=== PATIENT | female | born 1985 | race Caucasian/White ===

== ENCOUNTER 2016-06-03 15:52 | Inpatient (IN) | payer OTHER ==
[~2016-06-03] VITALS: Ht 167.6 cm; Wt 74.8 kg
[2016-06-03 16:37] VITALS: BP 126/75
[2016-06-03 17:17] LABS: ABSOLUTE BASOPHIL COUNT 0.1 /CUMM (0.0-0.2); ABSOLUTE EOSINOPHIL COUNT 0 /CUMM (0.0-0.7); ABSOLUTE GRANULOCYTE CT 10.5 /CUMM (1.4-6.5); ABSOLUTE LYMPH COUNT 1.7 /CUMM (1.2-3.4); ABSOLUTE MONOCYTE COUNT 0.7 /CUMM (0.10-0.60); BASOPHIL % 0.4 % (0.0-2.0); EOSINOPHIL % 0.2 % (0-5); MEAN CORPUSCULAR HGB 29.3 PG (27.0-31.0); MEAN CORPUSCULAR HGB CONC 33.6 G/DL (33.0-37.0); PLATELET COUNT 180 /CUMM (130-400); RBC DISTRIBUTION WIDTH 12.9 % (11.5-14.5); RED BLOOD CELL CT 3.91 /CUMM (4.20-5.40); WHITE BLOOD CELL COUNT 12.9 /CUMM (4.8-10.8)
[2016-06-03 17:19] LABS: GRANULOCYTE % 81.2 % (42.2-75.2)
--- NOTE | 2016-06-03 19:20 | History & Physical ---
General Information and HPI MD Statement: I have seen and personally examined ASHLEYJANA ALARCON and documented this H&P. The patient is a 30 year old female at [39] weeks and [3] days gestation who presented with a chief complaint of [LOF]. Source of Information: patient Exam Limitations: no limitations History of Present Illness: 30YO, 39 3/7wks , c/o LOF noon today, she went to office for evaluation, nitrizine positive, ferning negative, no pooling. came to CBC for further evaluation. she is also c/o mild ctxs. amnisure positive. care started at at 8 wks, h/o hypothyroidism, she takes synthroid 25mcg daily. 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 Home Who Do You Live With? spouse Primary Language: [place] Smoking Status: Never Smoked ETOH Use: denies use Illicit Drug Use: denies illicit drug use Review of Systems Review of Systems Constitutional: Reports: no symptoms. EENTM: Reports: no symptoms. Cardiovascular: Reports: no symptoms. Respiratory: Reports: no symptoms. GI: Reports: no symptoms. Genitourinary: Reports: see HPI. Musculoskeletal: Reports: no symptoms. Skin: Reports: no symptoms. Neurological/Psychological: Reports: no symptoms. Hematologic/Endocrine: Reports: no symptoms. Immunologic/Allergic: Reports: no symptoms. All Other Systems: Reviewed and Negative Date of LMP: 09/01/15 Post Menopausal: No Exam & Diagnostic Data Last 24 Hrs of Vital Signs/I&O Vital Signs Date Time Temp Pulse Resp B/P Pulse O2 O2 Flow FiO2 Ox Delivery Rate 06/03 1637 126/75 Obstetric Exam Wgt Gained During : 30lbs Pelvimetry: adequate Dilation (cm): 7 Effacement (%): 100 Station: 0 Membranes: SROM Fluid: clear Fundal Height (cm): 37 Multiple Gestation? No Contractions: q2 min #1 - FHR Baseline: 120 Category: 1 Estimated Weight: 3200g Presentation: vertex Patient for Induction? No Physical Exam: VSS General:NAD Abdomen: gravid, soft, nontender. Ext: DCT(-) Labs Blood Type & Rh: AB positive Antibody Screen: negative Hct/Hgb & Platelets #1: 13/39.7%,PLT [id number] Hct/Hgb & Platelets #2: 11.5/36.3%,[id number] Rubella: immune VDRL #1: negative VDRL #2: negative HbsAg: negative HIV #1: negative HIV #2 negative 1 Hr P Group B Strep: positive Initial Ultrasound: IUP at 8wks 1 day Anatomy Ultrasound: normal Ultrasound for EFW: 5lb7oz at 36 wks Genetic Testing: negative Last 24 Hrs of Labs/Pacheco: Laboratory Tests 06/03/16 1700: CBC w Diff NO MAN DIFF REQ, RBC 3.91 L, MCV 87.0, MCH 29.3, RDW 12.9, MPV 10.0, Gran % 81.2 H, Lymphocytes % 13.1 L, Monocytes % 5.1, Eosinophils % 0.2, Basophils % 0.4, Absolute Granulocytes 10.5 H, Absolute Lymphocytes 1.7, Absolute Monocytes 0.7 H, Absolute Eosinophils 0, Absolute Basophils 0.1, PUBS MCHC 33.6, Urinalysis LIGHT H, Urine Color YEL, Urine Clarity HAZY H, Urine pH 7.0, Ur Specific [place] 1.020, Urine Protein TRACE H, Urine Ketones NEG, Urine Nitrite NEG, Urine Bilirubin NEG, Urine Urobilinogen 0.2, Ur Leukocyte Esterase TRACE H, Ur Microscopic SEDIMENT EXAMINED, Urine RBC 5-10 H, Urine WBC 3-5 H, Ur Epithelial Cells MOD H, Urine Bacteria MOD H, Urine Mucus MOD H, Urine Hemoglobin MOD H, Urine Glucose NEG Assessment/Plan Assessment/Plan: 30yo, 39 3/7wks, SROM, labor 1. admit pt, admission labs 2. antibiotics for GBS prophylaxis 3 monitor closely, pain management as needed As Ranked By This Provider Problem List: 1. 2. SROM (spontaneous rupture of membranes) Core Measures/Miscellaneous Venous Thromboembolism VTE Risk Factors: / VTE Contraindications: No Contraindications VTE Diagnosis: No Beta Herminio Is Beta Herminio a Home Med? No Antibiotics Is Patient on Antibiotics? No Attending MD Review Statement Attending Statement Attending MD Statement: examined this patient, discussed with family, discussed w/nursing
--- NOTE | 2016-06-03 21:46 | PN- OBGYN ---
Surgical Brief Attending Note Brief Attending Note: pt is comfortable with epidural, c/o pressure. on TOCO: ctxs q2 min, FHJR baseline 120, moderate variability, + acels, no decels. cervix 9cm/100%/0. will monitor closely
--- NOTE | 2016-06-04 02:05 | Labor & Delivery Summary ---
Delivery Summary Vaginal Delivery: Vaginal: spontaneous Episiotomy/Lacerations: Episiotomy/Lacerations: 2ND DEGREE, B/L LABIAL SUPERFICIAL Type: 2ND DEGREE, B/L SUPERFICIAL LABIAL Repair: 2-0VICRYL, 3-0 VICRYL Anesthesia: EPIDURAL Placenta: Placenta: normal, 3 vessel, manual Anesthesia: EPIDURAL Baby's Weight: 7LB2OZ Apgars - 1 Min: 9 Apgars - 5 Min: 9 Additional Comments: Patient fully dilated, pushed well, spontaneously delivered a male at cephalic presentation, SKYLA position, head delivered atraumatically, followed by shoulders and rest of body without difficulty, baby vigorous and cried, place on mother's chest for skin to skin, nose and mouth suctioned with suction bulb, cord clamped and cut. Small second-degree laceration repaired with 2-0 Vicryl, bilateral small superficial labial laceration repaired with 3-0 Vicryl, hemostasis achieved. After delivery of the infant, IV Pitocin started. After 35 minutes of delivery of the infant, no placental separation, manual removal of the placenta was performed, placenta delivered intact, three-vessel cord. After delivery the placenta, heavy bleeding seen, Methergine 0.2 mg IM 1 was given, uterus massaged to firm. EBL 450 mL. Patient tolerated the procedure well, needle and laps counts were correct. Patient was given Kefzol 2 g IV 1 dose. She is in stable condition in the recovery room.
[2016-06-05 08:50] LABS: ABSOLUTE BASOPHIL COUNT 0 /CUMM (0.0-0.2); ABSOLUTE EOSINOPHIL COUNT 0.1 /CUMM (0.0-0.7); ABSOLUTE GRANULOCYTE CT 10.5 /CUMM (1.4-6.5); ABSOLUTE LYMPH COUNT 2.5 /CUMM (1.2-3.4); ABSOLUTE MONOCYTE COUNT 0.6 /CUMM (0.10-0.60); BASOPHIL % 0.4 % (0.0-2.0); EOSINOPHIL % 0.9 % (0-5); GRANULOCYTE % 76.3 % (42.2-75.2); HEMATOCRIT 32.1 % (37-47); MEAN CORPUSCULAR HGB 29.3 PG (27.0-31.0); MEAN CORPUSCULAR HGB CONC 33.5 G/DL (33.0-37.0); MEAN CORPUSCULAR VOLUME 87.5 FL (81.0-99.0); MEAN PLATELET VOLUME 9.7 FL (7.4-10.4); PLATELET COUNT 164 /CUMM (130-400); RBC DISTRIBUTION WIDTH 12.9 % (11.5-14.5); RED BLOOD CELL CT 3.67 /CUMM (4.20-5.40); WHITE BLOOD CELL COUNT 13.7 /CUMM (4.8-10.8)
--- NOTE | 2016-06-05 09:12 | PN- OBGYN ---
Surgical Brief Attending Note Brief Attending Note: PPD#1 pt is doing well, no complaints, tolerate diet, void without difficulties, ambulating well. pt request to be discharged today. PE: VSS CV RRR Lungs CTA B/L Abdomen: soft, nontender, uterus firm, fundus below umbilicus. lochia mild Ext: DCT (-) A/P: 30yo, s/p , PPD #1 1. encourage ambulation and 2. pt request circumcision for the baby, R/B/A of circumcision d/w pt, all questions answered, informed consent obtained 3. RT PP care 4. may consider d/c home later if pt stable. f/u in offcie 2 wks and 6 wks
[2016-06-05] MEDS ORDERED: IBUPROFEN800 M1 PO (09:36)
== END 2016-06-05 12:34 | DRG 775 ==
LOC: CBCO 15:52 → GNO 16:29
PROVIDERS: ADMIT Obstetrics & Gynecology
DX: O99.824 Streptococcus B carrier state complicating childbirth (principal); E03.9 Hypothyroidism, unspecified; O70.1 Second degree perineal laceration during delivery; Z3A.39 39 weeks gestation of pregnancy; Z37.0 Single live birth; O99.284 Endocrine, nutritional and metabolic diseases complicating childbirth
CPT/HCPCS: GNOP; GNOS; 81001; 84112; 87086; 88307; J0690; J1885; J2210; J7120